=== PATIENT | male | born 1985 | race Caucasian/White ===

== ENCOUNTER 2017-04-06 08:23 | Emergency (ER) | payer SELFPAY ==
[~2017-04-06] VITALS: Ht 177.8 cm; Wt 68.0 kg
[2017-04-06] MEDS ORDERED: IV NORMAL SALINE 1000ML BAG 1,000 ML IV ONE (08:45)
[2017-04-06] MEDS: fentaNYL PF VIAL 100 MCG/2 ML VIAL IV PRN ×3 (08:48→09:44)
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
[2017-04-06] MEDS ORDERED: BACITRACIN/POLYMYXIN B TOPICAL OINT 15GM TUBE. TP ONE ×4 (09:00→10:00)
[2017-04-06] MEDS ORDERED: LIDOCAINE 2% 20 ML VIAL. IJ ONE (09:00)
[2017-04-06 09:13] LABS: BASO % 0 % (0-3); EOS % 1 % (0-3); HEMATOCRIT 45.9 % (39.0-53.0); HEMOGLOBIN 15.9 g/dL (13.0-17.5); LYMPH # 1.2 x10^3/uL (1.0-4.8); LYMPH % 7 % (24-48); MEAN CORPUSCULAR HEMOGLOBIN 32 pg (25-35); MEAN CORPUSCULAR HGB CONC 35 g/dL (31-37); MEAN CORPUSCULAR VOLUME 93 fL (79-100); MONO % 10 % (0-9); NEUT % 83 % (31-73); PLATELET COUNT 213 x10^3/uL (140-400); RED BLOOD COUNT 4.96 x10^6/uL (4.30-5.70); RED CELL DISTRIBUTION WIDTH 14.1 % (11.5-14.5)
[2017-04-06 09:18] LABS: CALCIUM 8.3 mg/dL (8.5-10.1); CREATININE 0.9 mg/dL (0.7-1.3); GFR 97.2; POTASSIUM 3.4 mmol/L (3.5-5.1)
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
[2017-04-06 10:33] LABS: PLT ESTIMATE ADEQUATE (ADEQUATE)
[2017-04-06] MEDS ORDERED: HYDROmorphone 2 MG/ML VIAL IV/SQ PRN (10:45)
[2017-04-06 12:30] VITALS: BP 124/69
== END 2017-04-06 13:13 | disposition short-term general hospital (02) ==
LOC: ER 08:23
DX: T25.211A Burn of second degree of right ankle, initial encounter (principal); T25.221A Burn of second degree of right foot, initial encounter; T25.212A Burn of second degree of left ankle, initial encounter; T25.222A Burn of second degree of left foot, initial encounter; T31.11 Burns involving 10-19% of body surface with 10-19% third degree burns; S01.81XA Laceration without foreign body of other part of head, initial encounter; R60.9 Edema, unspecified; W20.8XXA Other cause of strike by thrown, projected or falling object, initial encounter; X58.XXXA Exposure to other specified factors, initial encounter; Y93.89 Activity, other specified; Y92.89 Other specified places as the place of occurrence of the external cause; Y99.8 Other external cause status
CPT/HCPCS: 12013; 16020; 36415; 73590; 73630; 80048; 85007; 85025; 96361; 96374; 96375; 96376; 99285; J1170; J3010; J7030; J2001